=== PATIENT | male | born 1975 | race Caucasian/White ===

== ENCOUNTER 2021-02-21 23:57 | Inpatient (IN) | payer MEDICAID ==
[~2021-02-21] VITALS: Ht 182.9 cm; Wt 170.1 kg
--- NOTE | 2021-02-22 00:04 | NUR ---
pt bibra c/o urinary retention and burning when urinating. Pt aaox4, breathing evenly. Pt appears to have urinated en route, but pt complains that "very little comes out". Pt placed on 2L O2 via NC, Pt spo2 96%. Pt attached to monitor and pox. Pt given blanket and call call light within reach
[2021-02-22] MEDS ORDERED: LIDOCAINE 2% JEL UROJET 10 ML MM ONE ×2 (00:09→00:30)
--- NOTE | 2021-02-22 00:48 | NUR ---
lab at bedside
--- NOTE | 2021-02-22 00:50 | NUR ---
taken to ct
[2021-02-22 01:00] LABS: BASOPHILS # (AUTO) 0.1 /CMM (0.0-0.2); BASOPHILS % (AUTO) 0.4 % (0.0-2.0); HEMATOCRIT 39 % (39-51); HEMOGLOBIN 12.7 g/dL (13.5-17.5); LYMPHOCYTES # (AUTO) 1.2 /CMM (0.8-4.8); LYMPHOCYTES % (AUTO) 5.9 % (20.0-44.0); MEAN CORPUSCULAR HGB CONC 32 g/dl (31.0-36.0); MEAN CORPUSCULAR VOLUME 80 fL (80-96); MONOCYTES # (AUTO) 1.3 /CMM (0.1-1.30); MONOCYTES % (AUTO) 6.2 % (2.0-12.0); NEUTROPHILS # (AUTO) 18.2 /CMM (1.8-8.9); NEUTROPHILS % (AUTO) 87.5 % (43.0-81.0); PLATELET COUNT (AUTO) 225 /CMM (150-450); RED BLOOD CELL COUNT(AUTO) 4.91 MIL/uL (4.5-6.0); WHITE BLOOD COUNT (AUTO) 20.8 K/uL (4.3-11.0)
[2021-02-22 01:10] LABS: CALCIUM, SERUM 8.6 mg/dL (8.5-10.1); POTASSIUM 3.7 mmol/L (3.5-5.1)
[2021-02-22 01:11] LABS: BILIRUBIN,URINE SMALL (NEGATIVE); COLOR,URINE YELLOW (YELLOW); LEUKOCYTE ESTERASE ,URINE TRACE (NEGATIVE); NITRITE, URINE NEGATIVE (NEGATIVE); PROTEIN,URINE 100 mg/dl (NEGATIVE); UGLUCOSE NEGATIVE (NEGATIVE)
[2021-02-22 01:19] LABS: ALBUMIN 3.3 g/dL (3.4-5.0); BILIRUBIN,DIRECT 0.2 mg/dL (0.0-0.2); BILIRUBIN,TOTAL 0.6 mg/dL (0.2-1.0); TOTAL PROTEIN, SERUM 7.3 g/dL (6.4-8.2)
--- NOTE | 2021-02-22 01:25 | NUR ---
left hand 20g initiated
[2021-02-22] MEDS ORDERED: IV NS 0.9% 1,000 ML BAG IV ONE (01:30)
[2021-02-22 01:40] LABS: RBC,URINE 81-100 /HPF (0-2); WBC,URINE 21-50 /HPF (0-3)
[2021-02-22 01:41] LABS: BACTERIA,URINE Moderate /HPF (None Seen); CALCIUM OXALATE CRYSTALS,UR Few /HPF (None Seen); SQUAMOUS EPITHELIAL CELL,UR Moderate /HPF (None Seen)
[2021-02-22 01:42] LABS: MUCUS,URINE Few /LPF (None Seen)
[2021-02-22] MEDS ORDERED: CEFTRIAXONE 1 G VIAL ONE (01:54)
[2021-02-22] MEDS ORDERED: CEFTRIAXONE 1GM BAG (ER ONLY) 50 ML IV ONE (01:57)
[2021-02-22] MEDS ORDERED: CEFTRIAXONE 1 G in IV D5W 50 ML IV ONE (02:00)
--- NOTE | 2021-02-22 02:10 | NUR ---
covid swab sent to lab
--- NOTE | 2021-02-22 02:10 | NUR ---
lab at bedside.
--- NOTE | 2021-02-22 02:17 | NUR ---
xray at bedside
--- NOTE | 2021-02-22 02:21 | NUR ---
GEORGIANA LOZADA DNP PAGED PER ER ORDER.
[2021-02-22 02:46] LABS: ALANINE AMINOTRANSFERASE 36 U/L (12-78); ALBUMIN 3.2 g/dL (3.4-5.0); ALKALINE PHOSPHATASE 113 U/L (46-116); ASPARTATE AMINOTRANSFERASE 15 U/L (15-37); BILIRUBIN,DIRECT 0.2 mg/dL (0.0-0.2); BILIRUBIN,TOTAL 0.7 mg/dL (0.2-1.0); TOTAL PROTEIN, SERUM 7.1 g/dL (6.4-8.2)
--- NOTE | 2021-02-22 02:53 | NUR ---
gave report to ARUNA Calix for lg
[2021-02-22 03:25] VITALS: BP 142/71
[2021-02-22] MEDS ORDERED: Z GUARD REMEDY 2 OZ OINT TP PRN (03:30)
[2021-02-22] MEDS ORDERED: ZOLPIDEM TARTRATE 5 MG TABLET PO PRN (03:30)
[2021-02-22] MEDS ORDERED: ONDANSETRON HCL/PF 4 MG/2 ML VIAL IVP PRN (03:30)
[2021-02-22] MEDS ORDERED: CEFTRIAXONE 2 G in IV D5W 100 ML IV SCH (03:30)
[2021-02-22] MEDS: IV NS 0.9% 1,000 ML IV PRN ×2 (03:50→18:47)
[2021-02-22] MEDS: ACETAMINOPHEN 325 MG TABLET PO PRN ×2 (03:50→14:29)
[2021-02-22] MEDS: ENOXAPARIN SODIUM 40 MG/0.4 ML DISP.SYRIN SQ SCH (03:52)
--- NOTE | 2021-02-22 04:36 | NUR ---
MS/TELE/RN RECEIVED PATIENT FROM [facility] BY BUDDY AT AROUND 0325. PATIENT WAS AWAKE, ALERT, ORIENTED, COMFORTABLE, NO C/O PAIN, NO DISTRESS NOTED, ORAL TEMP 102.2, TYLENOL 650 MG PO WAS GIVEN ORDERED, COOLING MEASURES WAS STARTED, WILL MONITOR TEMP. ADMISSION DONE PER PROTOCOL, SKIN ASSESSMENT DONE. PATIENT STATED THAT HE HAS WALKER AND SLIPPERS, CALLED E.RYudy RN TO VERIFY, PER NEVILLE, PATIENT DID NOT COME WITH WITH WALKER AND SLIPPERS, PATIENT MADE AWARE. ADMISSION ORDERS CARRIED OUT. PLAN OF CARE DISCUSSED WITH THE PATIENT, VERBALISED UNDERSTANDING AND AGREEMENT TO THE PLAN OF CARE. TAUGHT THE USE OF CALL LIGHT AND PLACED IT AT BEDSIDE WITHIN REACH. WILL MONITOR.
[2021-02-22] MEDS ORDERED: LISI20TA30 PO (05:46)
[2021-02-22] MEDS ORDERED: BACL10TA PO (05:46)
[2021-02-22] MEDS ORDERED: AMLO-213 PO (05:46)
[2021-02-22] MEDS ORDERED: CABE0.5T2 PO (05:46)
[2021-02-22] MEDS ORDERED: ASPI-1169 PO (05:46)
[2021-02-22] MEDS ORDERED: PRAV10TA40 PO (05:46)
[2021-02-22] MEDS ORDERED: DIAZ5TAB4 PO (05:46)
[2021-02-22] MEDS ORDERED: FAMO20TA8 PO (05:46)
--- NOTE | 2021-02-22 06:33 | NUR ---
MS/TELE/RN PATIENT IS AWAKE, ALERT, COMFORTABLE, NO C/O PAIN, NO DISTRESS NOTED, TEMP 99.1, IVF INFUSING, ALL NEEDS ATTENDED AT THIS TIME, WILL CONTINUE TO MONITOR. WILL CONTINUE TO MONITOR.
--- NOTE | 2021-02-22 07:42 | NUR ---
MS RN OPENING NOTES RECEIVED PATIENT ASLEEP, EASY TO AROUSE. ALERT AND ORIENTED X 4. PATIENT ON NC 2L TOLERATING WELL. NO SIGNS OF DISTRESS. BREATHING IS EVEN AND UNLABORED. IV ACCESS LHAND#20 PATENT AND INTACT. BED MAINTAINED ON LOWEST POSITION AND LOCKED WITH SIDE RAILS UP X 2. PEREZ CATHETER IS PATENT, INTACT AND DRAINING WELL. CALL LIGHT AND BEDSIDE TABLE IS WITHIN REACH. WILL CONITNUE TO MONITOR THROUGHOUT SHIFT.
[2021-02-22 07:48] LABS: CHOLESTEROL 117 mg/dL (<200); HDL CHOLESTEROL 31 mg/dL (40-60); LDL 77 mg/dL (0-99); TRIGLYCERIDES 35 mg/dL (30-150)
[2021-02-22 08:00] VITALS: BP 103/49
[2021-02-22] MEDS: PANTOPRAZOLE 40 MG TABLET.DR PO SCH (08:27)
[2021-02-22] MEDS: CEFTRIAXONE 2 G in IV D5W 100 ML IV SCH (08:27)
[2021-02-22] MEDS: AMLODIPINE BESYLATE 10 MG TABLET PO SCH (13:30)
--- NOTE | 2021-02-22 14:29 | NUR ---
MS RN NOTES PATIENT TEMPERATURE 101.4. TYLENOL 650MG AND COOLING MEASURES GIVEN.
[2021-02-22 16:00] VITALS: BP 115/60
--- NOTE | 2021-02-22 16:15 | NUR ---
MS RN NOTES RECHECKED VITALS BP 115/60 HR 95 TEMP IMPROVED AT 98.9 02 SAT 94%
[2021-02-22] MEDS: DIAZEPAM 5 MG TABLET PO SCH (16:22)
[2021-02-22] MEDS: BACLOFEN (10 MG) 10 MG TABLET PO SCH (16:22)
[2021-02-22] MEDS: LISINOPRIL (20MG) 20 MG TABLET PO SCH (16:29)
--- NOTE | 2021-02-22 19:20 | NUR ---
MS RN CLOSING NOTES RECEIVED PATIENT ASLEEP, EASY TO AROUSE. ALERT AND ORIENTED X 4. PATIENT ON NC 2L TOLERATING WELL. NO SIGNS OF DISTRESS. TEMPERATURE 98.9. IV ACCESS LHAND#20 PATENT AND INTACT. BED MAINTAINED ON LOWEST POSITION AND LOCKED WITH SIDE RAILS UP X 2. PEREZ CATHETER IS PATENT, INTACT AND DRAINING WELL. CALL LIGHT AND BEDSIDE TABLE IS WITHIN REACH. WILL CONTINUE TO MONITOR THROUGHOUT SHIFT. Addendum: 02/22/21 at 1922 by KING PERDOMO RN DISREGARD LAST NOTE-ERROR
--- NOTE | 2021-02-22 19:22 | NUR ---
MS RN CLOSING NOTES RECEIVED PATIENT ASLEEP, EASY TO AROUSE. ALERT AND ORIENTED X 4. PATIENT ON NC 2L TOLERATING WELL. NO SIGNS OF DISTRESS. TEMPERATURE 98.9. IV ACCESS LHAND#20 PATENT AND INTACT. BED MAINTAINED ON LOWEST POSITION AND LOCKED WITH SIDE RAILS UP X 2. PEREZ CATHETER IS PATENT, INTACT AND DRAINING WELL. CALL LIGHT AND BEDSIDE TABLE IS WITHIN REACH. WILL ENDORSE CONTINUITY OF CARE TO ONCOMING SHIFT.
--- NOTE | 2021-02-22 19:35 | NUR ---
MS/RN OPENING NOTE RECEIVED PATIENT RESTING IN BED. AWAKE, ALERT AND ORIENTED X 4. ABLE TO MAKE NEEDS KNOWN. C/O HEADACHE - WILL ADMINISTER ORDERED PAIN MEDICATION. CONTINUES ON O2 @ 2L VIA NC WITH NO S/SX OF RESPIRATORY DISTRESS NOTED. IV ACCESS TO LEFT HAND INTACT AND PATENT. CONTINUES ON IVF NS 0.9% @ 75ML/HR. CONTINUES ON IV ABX. PEREZ CATHETER PATENT DRAINING SHAREE COLORED URINE. CONTINUES ON CARDIAC DIET AND STRICT I/O'S. CALL LIGHT WITHIN REACH. ASPIRATION, FALL AND SAFETY PRECAUTIONS MAINTAINED. WILL CONTINUE TO MONITOR.
[2021-02-22] MEDS: HYDROCODONE/APAP 10/325MG TABLET PO PRN ×2 (19:41→23:43)
--- NOTE | 2021-02-22 19:45 | NUR ---
MS/RN NOTE ADMINISTERED NORCO 10/325MG FOR HEADACHE OF 8/10 PAIN. WILL REEVALUATE EFFECTIVENESS.
[2021-02-22 20:00] VITALS: BP 120/69
[2021-02-22] MEDS: ATORVASTATIN 10 MG TABLET PO SCH (21:29)
[2021-02-23 05:55] LABS: BASOPHILS # (AUTO) 0.1 /CMM (0.0-0.2); BASOPHILS % (AUTO) 0.3 % (0.0-2.0); EOSINOPHILS % (AUTO) 0.5 % (0.0-6.0); HEMATOCRIT 35 % (39-51); HEMOGLOBIN 11.2 g/dL (13.5-17.5); LYMPHOCYTES # (AUTO) 1.4 /CMM (0.8-4.8); MEAN CORPUSCULAR HGB CONC 32 g/dl (31.0-36.0); MEAN CORPUSCULAR VOLUME 82 fL (80-96); MONOCYTES # (AUTO) 1.1 /CMM (0.1-1.30); MONOCYTES % (AUTO) 5.5 % (2.0-12.0); NEUTROPHILS # (AUTO) 16.9 /CMM (1.8-8.9); NEUTROPHILS % (AUTO) 86.7 % (43.0-81.0); PLATELET COUNT (AUTO) 220 /CMM (150-450); WHITE BLOOD COUNT (AUTO) 19.5 K/uL (4.3-11.0)
--- NOTE | 2021-02-23 06:25 | NUR ---
MS/RN CLOSING NOTE PATIENT CURRENTLY RESTING IN BED. ALERT AND ORIENTED X 4. ABLE TO MAKE NEEDS KNOWN. CONTINUES ON O2 @ 2L VIA NC WITH NO S/SX OF RESPIRATORY DISTRESS NOTED. IV ACCESS TO LEFT HAND INTACT AND PATENT. CONTINUES ON IVF NS 0.9% @ 75ML/HR. CONTINUES ON IV ABX. PEREZ CATHETER PATENT DRAINING SHAREE COLORED URINE. CONTINUES ON CARDIAC DIET AND STRICT I/O'S. CALL LIGHT WITHIN REACH. ASPIRATION, FALL AND SAFETY PRECAUTIONS MAINTAINED. WILL ENDORSE PLAN OF CARE TO ONCOMING SHIFT.
[2021-02-23 06:39] LABS: CREATININE 0.9 mg/dL (0.6-1.3); PHOSPHORUS 2.7 mg/dL (2.5-4.9)
--- NOTE | 2021-02-23 07:16 | NUR ---
MS/RN OPENING NOTE PATIENT CURRENTLY RESTING IN BED. ALERT AND ORIENTED X 4. ABLE TO MAKE NEEDS KNOWN. CONTINUES ON O2 @ 2L VIA NC WITH NO S/SX OF RESPIRATORY DISTRESS NOTED. IV ACCESS TO LEFT HAND INTACT AND PATENT. CONTINUES ON IVF NS 0.9% @ 75ML/HR. CONTINUES ON IV ABX. PEREZ CATHETER PATENT DRAINING SHAREE COLORED URINE. CALL LIGHT WITHIN EASY REACH AND ANSWERED PROPMTLY. ASPIRATION, FALL AND SAFETY PRECAUTIONS MAINTAINED.
[2021-02-23 08:00] VITALS: BP 118/66
[2021-02-23] MEDS: ASPIRIN 81 MG TAB.CHEW PO SCH (08:26)
[2021-02-23] MEDS: CEFTRIAXONE 2 G in IV D5W 100 ML IV SCH (08:26)
[2021-02-23] MEDS: PANTOPRAZOLE 40 MG TABLET.DR PO SCH (08:27)
[2021-02-23] MEDS: AMLODIPINE BESYLATE 10 MG TABLET PO SCH (08:27)
[2021-02-23] MEDS: BACLOFEN (10 MG) 10 MG TABLET PO SCH ×2 (08:27→16:09)
[2021-02-23] MEDS: DIAZEPAM 5 MG TABLET PO SCH ×3 (08:27→16:09)
[2021-02-23] MEDS: LISINOPRIL (20MG) 20 MG TABLET PO SCH ×2 (08:27→16:11)
[2021-02-23] MEDS: ENOXAPARIN SODIUM 40 MG/0.4 ML DISP.SYRIN SQ SCH (08:39)
[2021-02-23] MEDS: ACETAMINOPHEN 325 MG TABLET PO PRN ×2 (15:54→22:23)
[2021-02-23 16:00] VITALS: BP 148/71
--- NOTE | 2021-02-23 18:14 | NUR ---
MS/RN closing NOTE PATIENT CURRENTLY RESTING IN BED. ALERT AND ORIENTED X 4. ABLE TO MAKE NEEDS KNOWN. CONTINUES ON O2 @ 2L VIA NC WITH NO S/SX OF RESPIRATORY DISTRESS NOTED. IV ACCESS TO LEFT HAND INTACT AND PATENT. CONTINUES ON IVF NS 0.9% @ 75ML/HR. CONTINUES ON IV ABX. PEREZ CATHETER PATENT DRAINING SHAREE orangish urine , continue to monitor urine , blood cx pending. CALL LIGHT WITHIN EASY REACH AND ANSWERED PROPMTLY. ASPIRATION, FALL AND SAFETY PRECAUTIONS MAINTAINED.
--- NOTE | 2021-02-23 19:48 | NUR ---
MS RN OPENING PATIENT IN BED. A/OX4. NO S/S OF DISTRESS. NO C/O PAIN YUKI. PATIENT HAVING TEMPERATURE. PEREZ CATH DRAINING SHAREE, ORANGE URINE WITH CLOTS/SEDIMENTS. SKIN INTACT. L. HAND IV RUNNING NS @ 75ML/HR. SAFETY IN PLACE: BED IN LOWEST, LOCKED POSITION; HOB ELEVATED, CALL LIGHT WITHIN REACH. WILL CONTINUE TO MONITOR.
[2021-02-23 20:00] VITALS: BP 117/62
[2021-02-23] MEDS: ATORVASTATIN 10 MG TABLET PO SCH (21:14)
[2021-02-23 21:51] VITALS: BP 117/62
--- NOTE | 2021-02-23 22:25 | NUR ---
MS RN NOTES RECHECKED PATIENT'S TEMPERATURE AND IT WENT UP FROM 100.7 TO 101.4. GIVEN TYLENOL 650 MG. WILL CONTINUE TO MONITOR.
[2021-02-23] MEDS: IV NS 0.9% 1,000 ML IV PRN (23:40)
--- NOTE | 2021-02-24 05:20 | NUR ---
MS RN NOTES RECHECKED PATIENTS TEMPERATURE, IT WAS 99.8. INITIATED ICE PACKS FOR PATIENT. WILL CONTINUE TO MONITOR.
[2021-02-24 06:33] LABS: BASOPHILS % (AUTO) 0.3 % (0.0-2.0); EOSINOPHILS % (AUTO) 0.4 % (0.0-6.0); HEMATOCRIT 36 % (39-51); HEMOGLOBIN 11.6 g/dL (13.5-17.5); LYMPHOCYTES # (AUTO) 0.3 /CMM (0.8-4.8); LYMPHOCYTES % (AUTO) 3.2 % (20.0-44.0); MEAN CORPUSCULAR HGB CONC 32 g/dl (31.0-36.0); MEAN CORPUSCULAR VOLUME 81 fL (80-96); MONOCYTES # (AUTO) 0.6 /CMM (0.1-1.30); MONOCYTES % (AUTO) 6.5 % (2.0-12.0); NEUTROPHILS # (AUTO) 8.8 /CMM (1.8-8.9); NEUTROPHILS % (AUTO) 89.6 % (43.0-81.0); PLATELET COUNT (AUTO) 194 /CMM (150-450); RED BLOOD CELL COUNT(AUTO) 4.42 MIL/uL (4.5-6.0); WHITE BLOOD COUNT (AUTO) 9.8 K/uL (4.3-11.0)
--- NOTE | 2021-02-24 06:46 | NUR ---
MS RN CLOSING PATIENT IN BED WITH EYES CLOSED, EASY TO AROUSE. PATIENT ABLE TO MAKE NEEDS KNOWN. ALL NEEDS ATTENDED. NO S/S OF DISTRESS TOLERATING 2LPM OXYGEN VIA NC. PEREZ CATH DRAINING SHAREE ORANGE URINE WITH CLOT/SEDIMENTS. L. HAND RUNNING NS @75 ML/HR. FEVER MANAGED WITH MEDICATIONS/ICE PACK. SAFETY KEPT IN PLACE THE WHOLE SHIFT: BED IN LOWEST, LOCKED POSITION, HOB ELEVATED, CALL LIGHT WITHIN REACH. WILL ENDORSE CARE TO MORNING SHIFT RN.
[2021-02-24 07:06] LABS: ALBUMIN 2.8 g/dL (3.4-5.0); CALCIUM, SERUM 8.4 mg/dL (8.5-10.1); CREATININE 0.9 mg/dL (0.6-1.3); PHOSPHORUS 2.4 mg/dL (2.5-4.9); POTASSIUM 4.1 mmol/L (3.5-5.1); TOTAL PROTEIN, SERUM 7.1 g/dL (6.4-8.2)
--- NOTE | 2021-02-24 07:28 | NUR ---
MSRN OPENING NOTES PATIENT IN BED. A/OX4. NO S/S OF DISTRESS. NO C/O PAIN YUKI. PATIENT HAVING TEMPERATURE. PEREZ CATH DRAINING SHAREE, ORANGE URINE WITH CLOTS/SEDIMENTS. SKIN INTACT. L. HAND IV RUNNING NS @ 75ML/HR. SAFETY IN PLACE: BED IN LOWEST, LOCKED POSITION; HOB ELEVATED, CALL LIGHT WITHIN REACH AND ANSWERED PROMPTLY.
[2021-02-24 08:00] VITALS: BP 110/60
[2021-02-24] MEDS: CEFTRIAXONE 2 G in IV D5W 100 ML IV SCH (08:05)
[2021-02-24] MEDS: ENOXAPARIN SODIUM 40 MG/0.4 ML DISP.SYRIN SQ SCH (08:06)
[2021-02-24] MEDS: ASPIRIN 81 MG TAB.CHEW PO SCH (08:06)
[2021-02-24] MEDS: PANTOPRAZOLE 40 MG TABLET.DR PO SCH (08:07)
[2021-02-24] MEDS: AMLODIPINE BESYLATE 10 MG TABLET PO SCH (08:07)
[2021-02-24] MEDS: BACLOFEN (10 MG) 10 MG TABLET PO SCH ×2 (08:07→16:08)
[2021-02-24] MEDS: LISINOPRIL (20MG) 20 MG TABLET PO SCH ×2 (08:07→16:09)
[2021-02-24] MEDS: DIAZEPAM 5 MG TABLET PO SCH ×3 (08:07→16:09)
[2021-02-24 11:12] LABS: ABG BASE EXCESS 3.8 mmol/L; ABG OXYGEN SATURATION 96.9 % (92.0-98.5); ABG PCO2 60.4 mmHg (35.0-45.0); ABG PO2 84.3 mmHg (75.0-100.0); AaDO2 160.6 mmHg; COHb 0.9 % (0.5-1.5); MetHb 0.3 % (0.0-1.5); O2Hb 95.7 % (94.0-97.0); SITE, ABG Left Radial; VENT MODE, BG nasal cannula
[2021-02-24] MEDS ORDERED: K PHOS NEUTRAL 250 MG TABLET PO ONE (15:30)
[2021-02-24 16:00] VITALS: BP 137/85
[2021-02-24] MEDS: ACETAMINOPHEN 325 MG TABLET PO PRN (16:07)
--- NOTE | 2021-02-24 18:22 | NUR ---
MSRN CLOSING NOTES PATIENT IN BED. A/OX4. NO S/S OF DISTRESS. NO C/O PAIN YUKI. PATIENT HAVING TEMPERATURE. PEREZ CATH DRAINING SHAREE, ORANGE URINE WITH CLOTS/SEDIMENTS. SKIN INTACT. L. FA 22G IV RUNNING NS @ 75ML/HR. SAFETY IN PLACE: BED IN LOWEST, LOCKED POSITION; HOB ELEVATED, CALL LIGHT WITHIN REACH AND ANSWERED PROMPTLY.
[2021-02-24 20:00] VITALS: BP 100/57
--- NOTE | 2021-02-24 20:00 | NUR ---
MS RN OPENING NOTE RECEIVED PT AWAKE IN BED. A/O X4. NO SOB NOTED. NO S/S OF RESPIRATORY DISTRESS. NO C/O PAIN OR DISCOMFORT AT THIS TIME. IV ACCESS NOTED IN LEFT ARM #22, INFUSING NS @ 75 ML/HR. PEREZ CATH DRAINING SHAREE, ORANGE URINE WITH CLOTS/SEDIMENTS. SAFETY MEASURES MAINTAINED. BED IN LOWEST LOCKED POSITION, HOB ELEVATED, SIDE RAILS UP X2. CALL LIGHT AND TABLE WITHIN REACH. WILL CONTINUE WITH PLAN OF CARE.
[2021-02-24] MEDS: ATORVASTATIN 10 MG TABLET PO SCH (21:58)
[2021-02-25] MEDS: HYDROCODONE/APAP 10/325MG TABLET PO PRN (01:08)
--- NOTE | 2021-02-25 01:08 | NUR ---
MS RN PAIN PT C/O THROBBING HEADACHE, RATED 8/10 ON 1-10 PAIN SCALE. PT NOTED WITH FACIAL GRIMACING, IRRITABILITY, AND RUBBING SITE. VSS. PER PT REQUEST, ADMINISTERED NORCO 10-325 MG PO Q4H PRN FOR PAIN. WILL REASSESS PT IN ONE HOUR.
[2021-02-25 04:00] VITALS: BP 110/62
[2021-02-25 06:30] LABS: BASOPHILS % (AUTO) 0.7 % (0.0-2.0); EOSINOPHILS % (AUTO) 1.3 % (0.0-6.0); HEMATOCRIT 35 % (39-51); HEMOGLOBIN 11.2 g/dL (13.5-17.5); LYMPHOCYTES # (AUTO) 0.5 /CMM (0.8-4.8); LYMPHOCYTES % (AUTO) 10.8 % (20.0-44.0); MEAN CORPUSCULAR HGB CONC 32 g/dl (31.0-36.0); MEAN CORPUSCULAR VOLUME 81 fL (80-96); MONOCYTES # (AUTO) 0.5 /CMM (0.1-1.30); NEUTROPHILS # (AUTO) 3.4 /CMM (1.8-8.9); NEUTROPHILS % (AUTO) 75.2 % (43.0-81.0); PLATELET COUNT (AUTO) 171 /CMM (150-450); RED BLOOD CELL COUNT(AUTO) 4.27 MIL/uL (4.5-6.0); WHITE BLOOD COUNT (AUTO) 4.5 K/uL (4.3-11.0)
[2021-02-25 07:01] LABS: CALCIUM, SERUM 8.3 mg/dL (8.5-10.1); CREATININE 0.6 mg/dL (0.6-1.3); PHOSPHORUS 2.7 mg/dL (2.5-4.9); POTASSIUM 3.7 mmol/L (3.5-5.1)
--- NOTE | 2021-02-25 07:30 | NUR ---
MS RN CLOSING NOTE PT IS AWAKE IN BED. A/O X4. NO SOB NOTED. NO S/S OF RESPIRATORY DISTRESS. NO C/O PAIN OR DISCOMFORT AT THIS TIME. IV ACCESS NOTED IN LEFT ARM #22, INFUSING NS @ 75 ML/HR. PEREZ CATH DRAINING SHAREE URINE WITH CLOTS/SEDIMENTS. ALL NEEDS HAVE BEEN MET. PAIN MANAGEMENT ADMINISTERED PER ORDER. SAFETY MEASURES MAINTAINED AT ALL TIMES. BED IN LOWEST LOCKED POSITION, HOB ELEVATED, SIDE RAILS UP X2. CALL LIGHT AND TABLE WITHIN REACH. WILL ENDORSE TO ONCOMING NURSE FOR VJ.
[2021-02-25] MEDS: IV NS 0.9% 1,000 ML IV PRN ×2 (07:34→21:28)
--- NOTE | 2021-02-25 07:35 | NUR ---
ms rn received on bed, awake,alert,oriented x4,not in any distress, respirations even and unlabored,abdomen soft,positive bowel sounds,no sob noted, will monitor patient's condition.
--- NOTE | 2021-02-25 07:58 | NUR ---
ms delgadillo was seen by soniya hannon w/ orders made and carried out.
[2021-02-25] MEDS: DIAZEPAM 5 MG TABLET PO SCH ×3 (08:32→17:12)
[2021-02-25] MEDS: BACLOFEN (10 MG) 10 MG TABLET PO SCH ×2 (08:32→17:12)
[2021-02-25] MEDS: ASPIRIN 81 MG TAB.CHEW PO SCH (08:32)
[2021-02-25] MEDS: PANTOPRAZOLE 40 MG TABLET.DR PO SCH (08:32)
[2021-02-25] MEDS: ENOXAPARIN SODIUM 40 MG/0.4 ML DISP.SYRIN SQ SCH (08:33)
[2021-02-25] MEDS: AMLODIPINE BESYLATE 10 MG TABLET PO SCH (09:00)
[2021-02-25] MEDS: LISINOPRIL (20MG) 20 MG TABLET PO SCH ×2 (09:00→17:12)
--- NOTE | 2021-02-25 09:00 | NUR ---
ms delgadillo breakfast served,due meds given,tolerated well.
[2021-02-25] MEDS: CEFTRIAXONE 2 G in IV D5W 100 ML IV SCH (09:17)
--- NOTE | 2021-02-25 10:20 | NUR ---
ms rn was seen by pt, walked around w/ walker, tolerated well.
[2021-02-25] MEDS: ACETAMINOPHEN 325 MG TABLET PO PRN (17:13)
--- NOTE | 2021-02-25 19:04 | NUR ---
ms rn on bed, no distress noted.
--- NOTE | 2021-02-25 19:35 | NUR ---
MS RN OPENING NOTE PATIENT IN BED A/OX4; ABLE TO MAKE NEEDS KNOWN. TOLERATING O2 4LPM WELL WITH NO SOB. DENIES PAIN OR DISCOMFORT AT THIS TIME. F/C DRAINING DARK SHAREE COLORED URINE; PATENT AND INTACT. IV TO L ARM #22G NS @ 75ML/HR; PATENT AND INTACT. AFEBRILE AND SKIN WARM TO TOUCH. SAFETY MEASURES IN PLACE: BED IN LOWEST LOCKED POSITION, SIDE RAILS UPX2, CALL LIGHT WITHIN EASY REACH, BED ALARMS ON. PATIENT IN STABLE CONDITION, WILL CONTINUE PLAN OF CARE.
[2021-02-25 20:00] VITALS: BP 126/75
[2021-02-25] MEDS: ATORVASTATIN 10 MG TABLET PO SCH (21:28)
--- NOTE | 2021-02-26 06:01 | NUR ---
MS RN OPENING NOTE PATIENT IN BED A/OX4; ABLE TO MAKE NEEDS KNOWN. TOLERATING O2 3LPM WELL WITH NO SOB. DENIES PAIN OR DISCOMFORT AT THIS TIME. F/C DRAINING DARK SHAREE COLORED URINE; PATENT AND INTACT. IV TO L ARM #22G NS @ 75ML/HR; PATENT AND INTACT. AFEBRILE AND SKIN WARM TO TOUCH. SAFETY MEASURES IN PLACE: BED IN LOWEST LOCKED POSITION, SIDE RAILS UPX2, CALL LIGHT WITHIN EASY REACH, BED ALARMS ON. PATIENT IN STABLE CONDITION, WILL ENDORSE PLAN OF CARE TO ONCOMING MORNING RN.
--- NOTE | 2021-02-26 07:03 | NUR ---
LIFE SCIENTIST OPENING NOTES RECEIVED PT AWAKE IN BED AT THIS TIME. PT AOX4. ABLE TO VERBALIZE NEED. NO SOB NOTED, NO C/O OF PAIN AT THIS TIME, NO S/O ANY APPARENT DISTRESS NOTED. RESPIRATIONS EVEN AND UNLABORED, PT NOTED ON OXYGEN @2LPM VIA NC. IV ACCESS NOTED IN LFA G#22, INTACT PATENT AND FLUSHING WELL. FC IN PLACE DRAINING TO GRAVITY CLEAR YELLOW URINE OUTPUT.SAFETY PRECAUTIONS IN PLACE AND MAINTAINED AT ALL TIMES. BED IN LOWEST LOCKED POSITION, SIDE RAILS UPX2, TABLE AND CALL LIGHT WITHIN REACH. WILL CONTINUE WITH PLAN OF CARE
[2021-02-26] MEDS: PANTOPRAZOLE 40 MG TABLET.DR PO SCH (08:38)
[2021-02-26] MEDS: LISINOPRIL (20MG) 20 MG TABLET PO SCH ×2 (09:47→17:53)
[2021-02-26] MEDS: ASPIRIN 81 MG TAB.CHEW PO SCH (09:48)
[2021-02-26] MEDS: AMLODIPINE BESYLATE 10 MG TABLET PO SCH (09:49)
[2021-02-26] MEDS: BACLOFEN (10 MG) 10 MG TABLET PO SCH ×2 (09:50→18:09)
[2021-02-26] MEDS: DIAZEPAM 5 MG TABLET PO SCH ×3 (09:51→17:54)
[2021-02-26] MEDS: ENOXAPARIN SODIUM 40 MG/0.4 ML DISP.SYRIN SQ SCH (09:54)
[2021-02-26] MEDS: CEFTRIAXONE 2 G in IV D5W 100 ML IV SCH (09:59)
[2021-02-26] MEDS: IV NS 0.9% 1,000 ML IV PRN ×2 (11:29→22:21)
--- NOTE | 2021-02-26 11:48 | NUR ---
PT C/O CONSTIPATION, DR AMES MADE AWARE. DR AMES ORDERED COLACE 100MG PO BID AND SENOKOT 2 TABS QHS PRN. ORDERS CARRIED OUT WILL CONTINUE MONITOR
[2021-02-26] MEDS: DOCUSATE SODIUM 100 MG CAPSULE PO SCH (17:52)
--- NOTE | 2021-02-26 18:00 | NUR ---
RN CLOSING NOTE PT RESTING AT THIS TIME, EASY TO AROUSE. PT REMAINED STABLE THROUGHOUT SHIFT, ALL NEEDS, MEDICATIONS, AND CARE ADMINISTERED ANTICIPATED PER ORDER. PAIN CONTROL ADMINISTERED PER ORDER. .SAFETY PRECAUTIONS IN PLACE AND MAINTAINED AT ALL TIMES. BED IN LOWEST LOCKED POSITION,HOB ELEVATED, SIDE RAILS UP X2. CALL LIGHT AND TABLE WITHIN REACH. WILL ENDORSE TO EGG CRATER NURSE FOR VJ
[2021-02-26] MEDS: HYDROCODONE/APAP 10/325MG TABLET PO PRN (18:28)
--- NOTE | 2021-02-26 18:28 | NUR ---
PT C/O ACHING PAIN OF 8/10 ON HIS HEAD, BP 131/63 HR 93 RR 20 T 98.7, O2 SAT ON NC 3L PER PT REQUEST NORCO 5-523 PO Q4HR PRN ADMINISTERED PER ORDER. WILL CONTINUE TO MONITOR
[2021-02-26 20:00] VITALS: BP 135/68
--- NOTE | 2021-02-26 20:18 | NUR ---
MS RN NOTES RECEIVED PT AWAKE IN BED AT THIS TIME. PT AOX3. ABLE TO VERBALIZE NEED. NO SOB NOTED, NO C/O OF PAIN AT THIS TIME, NO S/O ANY APPARENT DISTRESS NOTED. RESPIRATIONS EVEN AND UNLABORED, PT NOTED ON OXYGEN @2LPM VIA NC. IV ACCESS NOTED IN LFA G#22, INTACT PATENT AND FLUSHING WELL. FC IN PLACE DRAINING TO GRAVITY CLEAR YELLOW URINE OUTPUT.SAFETY PRECAUTIONS IN PLACE AND MAINTAINED AT ALL TIMES. BED IN LOWEST LOCKED POSITION, SIDE RAILS UPX2, TABLE AND CALL LIGHT WITHIN REACH. WILL CONTINUE TO MONITOR.
[2021-02-26] MEDS ORDERED: SENNOSIDES 8.6 MG TABLET PO SCH (22:00)
[2021-02-26] MEDS ORDERED: SENNOSIDES 8.6 MG TABLET PO PRN (22:00)
[2021-02-26] MEDS: ATORVASTATIN 10 MG TABLET PO SCH (22:03)
[2021-02-27] MEDS: HYDROCODONE/APAP 10/325MG TABLET PO PRN ×2 (02:09→20:41)
--- NOTE | 2021-02-27 07:03 | NUR ---
MS RN NOTES PT AWAKE IN BED AT THIS TIME. PT AOX3. ABLE TO VERBALIZE NEED. NO SOB NOTED, NO C/O OF PAIN AT THIS TIME, NO S/O ANY APPARENT DISTRESS NOTED. RESPIRATIONS EVEN AND UNLABORED, PT NOTED ON OXYGEN @2LPM VIA NC. IV ACCESS NOTED IN LFA G#22, INTACT PATENT AND FLUSHING WELL. FC IN PLACE DRAINING TO GRAVITY CLEAR YELLOW URINE OUTPUT.SAFETY PRECAUTIONS IN PLACE AND MAINTAINED AT ALL TIMES. BED IN LOWEST LOCKED POSITION, SIDE RAILS UPX2, TABLE AND CALL LIGHT WITHIN REACH. WILL CONTINUE TO MONITOR.
[2021-02-27 08:00] VITALS: BP 130/72
--- NOTE | 2021-02-27 08:00 | NUR ---
RN OPENING NOTE RECEIVED PATIENT IN BED, AO X 4, ABLE TO RESPONDS ALL STIMULI. DENIES PAIN OR DISTRESS. SKIN IS WARM TO TOUCH KEEP CLEAN/DRY, INTACT IV SITE. RESPIRATORY EVEN AND UNLABORED WITH OXYGEN AT 3LPM, NO DISTRESS OBSERVED. KEPT ELEVATED HOB FOR ENSURE AIRWAY AND ASPIRATION PRECAUTION, ALSO LOWEST BED POSITION FOE SAFETY. CALL LIGHT WITHIN REACH, WILL CONTINUE TO MONITOR.
[2021-02-27] MEDS: CEFTRIAXONE 2 G in IV D5W 100 ML IV SCH (09:16)
[2021-02-27] MEDS: ASPIRIN 81 MG TAB.CHEW PO SCH (09:16)
[2021-02-27] MEDS: PANTOPRAZOLE 40 MG TABLET.DR PO SCH (09:17)
[2021-02-27] MEDS: DOCUSATE SODIUM 100 MG CAPSULE PO SCH ×2 (09:17→17:25)
[2021-02-27] MEDS: LISINOPRIL (20MG) 20 MG TABLET PO SCH ×2 (09:17→17:26)
[2021-02-27] MEDS: AMLODIPINE BESYLATE 10 MG TABLET PO SCH (09:17)
[2021-02-27] MEDS: BACLOFEN (10 MG) 10 MG TABLET PO SCH ×2 (09:18→17:26)
[2021-02-27] MEDS: DIAZEPAM 5 MG TABLET PO SCH ×3 (09:18→17:26)
[2021-02-27] MEDS: ENOXAPARIN SODIUM 40 MG/0.4 ML DISP.SYRIN SQ SCH (09:19)
[2021-02-27] MEDS: LEVOFLOXACIN (250MG) 250 MG TABLET PO SCH (13:06)
[2021-02-27 15:10] LABS: ABG OXYGEN SATURATION 81.3 % (92.0-98.5); ABG PCO2 50.7 mmHg (35.0-45.0); ABG PH 7.449 (7.350-7.450); ABG PO2 39.4 mmHg (75.0-100.0); AaDO2 49.6 mmHg; MetHb 0.4 % (0.0-1.5); O2Hb 80.2 % (94.0-97.0); SITE, ABG Left Radial
--- NOTE | 2021-02-27 15:19 | NUR ---
PATIENT NOTICED O2SAT IS LOW FROM ABG, NOTICED VIKKI BERNAL WILL FOLLOW UP OXYGEN SUPPLY WITH DISCHARGE TO HOME.
--- NOTE | 2021-02-27 15:26 | NUR ---
PATIENT O2SAT IS 80% ON ROOM AIR AT REST.
[2021-02-27 16:00] VITALS: BP 139/68
--- NOTE | 2021-02-27 18:25 | NUR ---
RN CLOSING NOTE PATIENT RESTING IN BED, DOES NO APPEARS DISTRESS OR DISCOMFORT. SKIN IS WARM TOUCH, KEEP CLEAN/DRY, INTACT MIDLINE SITE. RESPIRATORY EVEN AND UNLABORED WITH OXYGEN AT 2LPM, O2SAT 95-96 %. PATIENT HAD DONE ABG AND SHOWS LOW O2SAT 80.3% RESULT HOLD DISCHARGE BY MD, ALSO PLACED ORDER CONTINUE TO PULSOX. PATIENT WAS SCREAMING AT IN THE ROOM DUE TO HELD D/C, ALSO DOES NOT PAY BILLS(TOTAL AMOUNT$145). KEPT ELEVATED HOB FOR ENSURE AIRWAY AND ASPIRATION PRECAUTION, ALSO LOWEST BED POSITION FOR SAFETY. CALL LIGHT WITHIN REACH, WILL ENDORSE RADIO BROADCASTER.
--- NOTE | 2021-02-27 19:47 | NUR ---
MS RN OPENING NOTE RECEIVED PT AWAKE IN BED. A/O X4. PT ON 2 LPM O2 VIA NC SATS 95%. NO SOB NOTED. NO S/S OF RESPIRATORY DISTRESS. NO C/O PAIN OR DISCOMFORT AT THIS TIME. IV ACCESS NOTED IN LEFT ARM #22, INFUSING NS @ 75 ML/HR. PEREZ CATH DRAINING CLEAR, YELLOW URINE. SAFETY MEASURES MAINTAINED. BED IN LOWEST LOCKED POSITION, HOB ELEVATED, SIDE RAILS UP X2. CALL LIGHT AND TABLE WITHIN REACH. WILL CONTINUE WITH PLAN OF CARE.
[2021-02-27 20:00] VITALS: BP 139/67
--- NOTE | 2021-02-27 20:41 | NUR ---
MS RN PAIN PT C/O THROBBING HEADACHE, RATED 8/10 ON PAIN SCALE. VS BP 139/67, HR 103, RR 20, TEMP 98.4, SPO2 95%. PER PT REQUEST, ADMINISTERED NORCO 10-325 MG PO Q4H PRN FOR PAIN. WILL CONTINUE TO MONITOR.
[2021-02-27] MEDS: ATORVASTATIN 10 MG TABLET PO SCH (21:04)
[2021-02-28] MEDS: HYDROCODONE/APAP 10/325MG TABLET PO PRN ×2 (00:53→22:26)
--- NOTE | 2021-02-28 06:21 | NUR ---
MS RN CLOSING NOTE PT IS IN BED WITH EYES CLOSED, EASILY AROUSED. A/O X4. PT ON 2 LPM O2 VIA NC SATS 96%. NO SOB NOTED. NO S/S OF RESPIRATORY DISTRESS. NO C/O PAIN OR DISCOMFORT AT THIS TIME. IV ACCESS INTACT, PATENT, AND FLUSHING WELL. PEREZ CATH IN PLACE, DRAINING CLEAR YELLOW URINE. ALL NEEDS HAVE BEEN MET. PAIN MANAGEMENT ADMINISTERED PER ORDER. SAFETY PRECAUTIONS MAINTAINED AT ALL TIMES. BED IN LOWEST LOCKED POSITION, HOB ELEVATED, SIDE RAILS UP X2. CALL LIGHT AND TABLE WITHIN REACH. WILL ENDORSE TO ONCOMING NURSE FOR VJ.
[2021-02-28] MEDS: IV NS 0.9% 1,000 ML IV PRN (06:49)
--- NOTE | 2021-02-28 07:43 | NUR ---
RN OPENING NOTE PT AWAKE IN BED EATING BREAKFAST. A/O X4 AND SPEAKS SAMMARINESE. HEADACHE PRESENT. MEDS TO BE GIVEN PER PROTOCOL CURRENTLY ON 2L NC O2 WITH NO RESPIRATORY DISTRESS PRESENT. SOB PRESENT. NO BATTING MACHINE OPERATOR INSULATION PRESENT. NO EDEMA PRESENT. F/C PRESENT AND DRAINING WITH CLEAR YELLOW FLUID. PT IS AMBULATORY WITH WALKER ASSIST. SKIN IS INTACT. IV PRESENT ON L FA AND FLUSHES WELL. LABS REVIEWED. SAFETY MEASURES IN PLACE. SIDE RAILS RAISED. BED LOWERED. CALL LIGHT WITHIN REACH. WILL CONTINUE TO MONITOR.
[2021-02-28 08:00] VITALS: BP 127/73
[2021-02-28] MEDS: PANTOPRAZOLE 40 MG TABLET.DR PO SCH (09:16)
[2021-02-28] MEDS: ASPIRIN 81 MG TAB.CHEW PO SCH (09:16)
[2021-02-28] MEDS: AMLODIPINE BESYLATE 10 MG TABLET PO SCH (09:17)
[2021-02-28] MEDS: DOCUSATE SODIUM 100 MG CAPSULE PO SCH ×2 (09:17→17:19)
[2021-02-28] MEDS: DIAZEPAM 5 MG TABLET PO SCH ×3 (09:18→17:19)
[2021-02-28] MEDS: LISINOPRIL (20MG) 20 MG TABLET PO SCH ×2 (09:18→17:20)
[2021-02-28] MEDS: BACLOFEN (10 MG) 10 MG TABLET PO SCH ×2 (09:20→17:19)
[2021-02-28] MEDS: ACETAMINOPHEN 325 MG TABLET PO PRN (09:20)
[2021-02-28] MEDS: ENOXAPARIN SODIUM 40 MG/0.4 ML DISP.SYRIN SQ SCH (09:24)
[2021-02-28] MEDS: LEVOFLOXACIN (250MG) 250 MG TABLET PO SCH (11:24)
--- NOTE | 2021-02-28 14:42 | NUR ---
RN NOTE PT TO BE DISCHARGED HOME WITH LOANED OXYGEN CONCENTRATION WITH 2L NC ORDERED BY DR VICTORIA. PT REFUSING CONCENTRATOR STATING "I CANNOT PROMISE TO NOT BREAK IT." ASKED CASE MANAGEMENT TO SEE PT REGARDING REFUSAL OF CONCENTRATOR.
--- NOTE | 2021-02-28 15:23 | NUR ---
RN NOTE VISITED PT WITH CASE MANAGEMENT AT BEDSIDE. PT EDUCATED ON PROS AND CONS OF REFUSING OXYGEN CONCENTRATOR. CONCENTRATOR PLANNED TO BE PROVIDED BY HOSPITAL TO PATIENT UNTIL TUESDAY. PATIENT REFUSES TO SIGN CONTRACT SAYING THAT HE CANNOT PROVIDE GUARANTEE OF LOSS OR DAMAGE OF CONCENTRATOR. EMPHASIZED IMPORTANCE OF OXYGEN IN REGARDS TO PATIENTS HEALTH. PATIENT VERBALIZED UNDERSTANDS AND CONTINUED TO REFUSE TO SIGN CONTRACT. PATIENT ASKED TO SEE CHARGE NURSE
--- NOTE | 2021-02-28 15:45 | NUR ---
RN NOTE COMMUNICATED WITH PT REGARDING O2 CONCENTRATOR REFUSAL. EMPHASIZED THAT HOSPITAL WILL PROVIDE CONCENTRATOR AND THAT PT NEEDS OXYGEN. PT AGREED TO TAKE CONCENTRATOR HOME TO MD WITH 2 NURSES PRESENT AT BEDSIDE. PT REFUSED TO SIGN CONTRACT. CONTRACT SIGNED WITH 2 RN SIGNATURES. PT TO BE PICKED UP BY AMBULANCE AT 1999 AND CONCENTRATOR TO BE BROUGHT WITH PATIENT.
[2021-02-28 16:00] VITALS: BP 114/56
--- NOTE | 2021-02-28 18:13 | NUR ---
RN CLOSING NOTE PT SITTING IN CHAIR EATING DINNER. A/O X4 AND SPEAKS ROMANIAN. NO COMPLAINT OF PAIN OR NAUSEA. CURRENTLY ON 2L NC O2 WITH NO RESPIRATORY DISTRESS PRESENT. SOB PRESENT. NO SHAKE BACKBOARD NOTCHER PRESENT. NO EDEMA PRESENT. PT IS AMBULATORY WITH WALKER ASSIST. SKIN IS INTACT. IV REMOVED. DISCHARGE FOR PT PENDING. CUSTOMER ORDER CLERK AT 1999. ROUTINE MEDS GIVEN. LABS REVIEWED. SAFETY MEASURES IN PLACE. SIDE RAILS RAISED. BED LOWERED. CALL LIGHT WITHIN REACH. REPORT TO BE GIVEN TO NIGHT NURSE FOR VJ.
--- NOTE | 2021-02-28 19:16 | NUR ---
MS RN OPENING NOTE PATIENT IN BED A/OX4; ABLE TO MAKE NEEDS KNOWN. TOLERATING O2 2LPM. DENIES PAIN OR DISCOMFORT AT THIS TIME. NO IV ACCESS. D/C PAPERS COMPLETED. SAFETY MEASURES IN PLACE: BED IN LOWEST LOCKED POSITION, SIDE RAILS UPX2, CALL LIGHT WITHIN EASY REACH, BED ALARMS ON. PATIENT IN STABLE CONDITION. WAITING FOR AMBULANCE FOR PT TO BE D/[facility].
[2021-02-28 20:00] VITALS: BP 109/58
[2021-02-28] MEDS: ATORVASTATIN 10 MG TABLET PO SCH (22:25)
--- NOTE | 2021-02-28 22:26 | NUR ---
MS RN NOTE - PAIN PATIENT C/O 06/28 HEADACHE. ADMINISTERED NORCO ORDERED. WILL REASSES PATIENT'S PAIN IN 30 MINUTES.
[2021-02-28 23:25] VITALS: BP 135/70
--- NOTE | 2021-02-28 23:30 | NUR ---
MS RN DC NOTE PATIENT A/OX4. IN STABLE CONDITION. NO IV ACCESS NOTED. ON 2LPM TOLERATING AT SPO2 92%. PATIENT SIGNED PATIENT BELONGINGS LIST AND ALL PATIENT BELONGINGS WERE BROUGHT HOME WITH PATIENT. PATIENT BRINGING HOME O2 CONCENTRATION; PATIENT VERBALIZED UNDERSTANDING HOW TO USE O2. BP 135/70, P 96, T 96.8
--- NOTE | 2021-02-28 23:31 | NUR ---
MS DC NOTE GAVE REPORT TO EMT MARILUZ. PATIENT DC'ED HOME BY AMBULANCE.
== END 2021-02-28 23:30 | disposition home or self-care (01) | DRG 720 ==
LOC: ER 02-22 00:06 → TELE 02-22 02:46 → MED 02-22 04:09
PROVIDERS: ATTEND Nurse Practitioner Acute Care
DX: A41.9 Sepsis, unspecified organism (principal); J96.21 Acute and chronic respiratory failure with hypoxia; K76.0 Fatty (change of) liver, not elsewhere classified; E66.2 Morbid (severe) obesity with alveolar hypoventilation; I69.351 Hemiplegia and hemiparesis following cerebral infarction affecting right dominant side; K40.20 Bilateral inguinal hernia, without obstruction or gangrene, not specified as recurrent; J98.11 Atelectasis; Z20.822 Contact with and (suspected) exposure to COVID-19; Z79.82 Long term (current) use of aspirin; Z79.899 Other long term (current) drug therapy; I10 Essential (primary) hypertension; Z68.43 Body mass index [BMI] 50.0-59.9, adult; B96.20 Unspecified Escherichia coli [E. coli] as the cause of diseases classified elsewhere; Z87.440 Personal history of urinary (tract) infections; K42.9 Umbilical hernia without obstruction or gangrene; R33.9 Retention of urine, unspecified; J96.22 Acute and chronic respiratory failure with hypercapnia
CPT/HCPCS: 36415; 36600; 71045-TC; 80048-TC; 80053-TC; 80061-TC; 80076-TC; 81001; 82803-TC; 82962-TC; 83605-TC; 83735-TC; 84100-TC; 84484-TC; 85025-TC; 85730-TC; 87040-TC; 87081-TC; 87086-TC; 87186-TC; 94799-TC; 97116-TC; 97530-TC; G0378; J0696; J1650; J3490; J7030; J7060